=== PATIENT | female | born 1970 | race Caucasian/White ===

== ENCOUNTER 2016-09-22 00:49 | Emergency (ER) | payer BC ==
[2016-09-22] MEDS ORDERED: ACETAMINOPHEN 325 MG TAB PO ONE (01:01)
[2016-09-22] MEDS ORDERED: ALPRAZolam 0.25 MG TAB PO ONE (01:04)
[2016-09-22 01:36] VITALS: TEMP 97.8
--- NOTE | 2016-09-22 02:39 | ED.PDOC ---
History of Present Illness - General Chief Complaint: Allergic Reaction Stated Complaint: i think i am having an allergic reaction Time Seen by Provider: 09/22/16 00:51 Source: patient, family Exam Limitations: no limitations - History of Present Illness Initial Comments: the patient is a 46-year-old female presenting to the emergency room secondary to acute onset atypical symptoms including feeling like her jaw was locking down. She was also feeling palpitations. She was also having tremors. She was quite anxious. no chest pain. No syncope or near-syncope. No vision taste or smell changes. No headache. No rash. No pruritus. She felt like her tongue was getting big and her mouth. On physical exam the only findings is that she is in a mild sinus tachycardia and she has significant shakes and tremors almost consistent with chills. She is afebrile. She is alert and oriented. She is cooperative. No sore throat or runny nose. Tongue is not swollen. There are no rashes. She is not actually having a difficult time breathing. No new medications have been started. She did take an Ambien approximately 1 hour prior to the start of symptoms. Timing/Duration: 1/2 hour Severity: moderate Improving Factors: nothing Worsening Factors: nothing Associated Symptoms: fever/chills Allergies/Adverse Reactions: Allergies NO KNOWN ALLERGY Allergy (Verified 09/22/16 01:24) Home Medications: Ambulatory Orders Bupropion HCl [Wellbutrin Sr] 150 mg PO BID 01/20/14 Esterified Estrogens [Menest] 0.3 mg PO DAILY 01/20/14 Lisinopril & Hydrochlorothiazi [Lisinopril/Hctz 20-12.5 mg] 20 mg PO DAILY 01/20 Metformin HCl 500 mg PO DAILY 01/20/14 Omeprazole 20 mg PO DAILY 01/20/14 Review of Systems - Review of Systems Constitutional: States: chills EENTM: States: mouth swelling - subjectively but not visually seen Respiratory: States: no symptoms reported Cardiology: States: palpitations Gastrointestinal/Abdominal: States: no symptoms reported Genitourinary: States: no symptoms reported Musculoskeletal: States: no symptoms reported Skin: States: no symptoms reported Neurological: States: anxiety, tremors All other Systems: No Change from Baseline Past Medical History (General) - Patient Medical History Hx Dementia: Yes Hx Congestive Heart Failure: No Hx Hypertension: Yes Hx Diabetes: Yes - Vaccination History Hx Tetanus, Diphtheria Vaccination: No Hx Influenza Vaccination: Yes Hx Pneumococcal Vaccination: No Immunizations Up to Date: No - Social History Hx Tobacco Use: No Hx Alcohol Use: No Hx Substance Use: No Hx Substance Use Treatment: No Hx Depression: No - Female History Patient is a Female of Child Bearing Age (10 -59 yrs old): No Patient : No Family Medical History - Family History Mother Family History: Unknown Living Status: Physical Exam - Physical Exam General Appearance: Alert, Anxious, Restless Eye Exam: bilateral normal Ears, Nose, Throat: hearing grossly normal, normal ENT inspection, normal pharynx Neck: full range of motion, supple Respiratory: chest non-tender, lungs clear, normal breath sounds, no respiratory distress, no accessory muscle use Cardiovascular/Chest: normal peripheral pulses, regular rate, rhythm, no edema, tachycardia - sinus tachycardia Peripheral Pulses: radial,right: 2+, radial,left: 2+ Gastrointestinal/Abdominal: non tender, soft Rectal Exam: deferred Back Exam: normal inspection Extremity: normal range of motion, non-tender Neurologic: alert, normal mood/affect - she does have significant anxiety., oriented x 3 Skin Exam: normal color Comments: Vital Signs - 24 hr 09/22/16 01:25 Temperature 97.8 F Pulse Rate [ 115 H Left] Respiratory 20 Rate Blood Pressure 158/94 [Left Arm] O2 Sat by Pulse 95 Oximetry Progress - Progress Progress: 09/22/16 02:41 the patient is a 46-year-old female presenting with palpitations and tremors versus chills along with atypical oral sensations. no angioedema is present. She does not appear to be having allergic reaction. She may be having chills as a first symptom of an oncoming infection that we have not yet been able to detect. She needs to monitor for any new symptoms over the coming 2 -3 days. She needs to keep herself well-hydrated. She responded well to a dose of Tylenol and a low dose of Xanax. It is possible this may be an adverse effect of one of her home medications, most likely her Ambien or Wellbutrin. They both have tremors and palpitations listed as side effects. She needs to follow up with her primary care doctor early this coming week. She needs to return here to the emergency room for any acute worsening. - Results/Orders Results/Orders: Laboratory Tests 09/22/16 09/22/16 01:10 02:01 WBC 9.1 RBC 4.55 Hgb 12.0 Hct 37.2 MCV 81.8 MCH 26.4 L MCHC 32.3 L RDW 13.7 Plt Count 271 MPV 10.2 Absolute Neuts (auto) 4.50 Absolute Lymphs (auto) 3.70 H Absolute Monos (auto) 0.70 Absolute Eos (auto) 0.20 Absolute Basos (auto) 0.10 Neutrophils % 49.7 Lymphocytes % 40.5 Monocytes % 7.2 Eosinophils % 1.7 Basophils % 0.9 D-Dimer, Quantitative < 230 Sodium 137 Potassium 3.6 Chloride 104 Carbon Dioxide 24 Anion Gap 12.6 BUN 16 Creatinine 1.11 BUN/Creatinine Ratio 14.4 Random Glucose 127 H Serum Osmolality 276.6 Calcium 9.5 Magnesium 2.0 Total Bilirubin 0.2 AST 25 ALT 22 Alkaline Phosphatase 85 Creatine Kinase 102 CK-MB (CK-2) 1.2 CK-MB (CK-2) % Not Reportable Troponin I < 0.02 Serum Total Protein 7.0 Albumin 4.2 Globulin 2.8 Albumin/Globulin Ratio 1.5 TSH 5.11 Urine Color Yellow Urine Appearance Clear Urine pH 6.0 Ur Specific [place] 1.010 Urine Protein Negative Urine Glucose (UA) Negative Urine Ketones Negative Urine Blood Trace-lysed H Urine Nitrite Negative Urine Bilirubin Negative Urine Urobilinogen 0.2 Ur Leukocyte Esterase Trace H Urine RBC 0-1 Urine WBC 1-3 Ur Epithelial Cells 0 Urine Bacteria Rare Urine HCG, Qual Negative EKG shows normal sinus rhythm. Mild right axis deviation. Low voltage in the anterior lateral leads. No ST segment changes concerning for ischemia otherwise. Mild T-wave inversion in lead 3 only. Departure - Departure Clinical Impression: Occasional tremors, Palpitations Disposition: Discharge to Home or Self Care Condition: Fair Departure Forms: ED Discharge - Pt. Copy, Patient Portal Self Enrollment Diet: regular diet Activity: increase activity as tolerated Referrals: Jean-Claude Sanford MD [Primary Care Provider] - 1-5 Days Home Medications: Ambulatory Orders Bupropion HCl [Wellbutrin Sr] 150 mg PO BID 01/20/14 Esterified Estrogens [Menest] 0.3 mg PO DAILY 01/20/14 Lisinopril & Hydrochlorothiazi [Lisinopril/Hctz 20-12.5 mg] 20 mg PO DAILY 01/20 Metformin HCl 500 mg PO DAILY 01/20/14 Omeprazole 20 mg PO DAILY 01/20/14 Additional Instructions: the patient is a 46-year-old female presenting with palpitations and tremors versus chills along with atypical oral sensations. no angioedema is present. She does not appear to be having allergic reaction. She may be having chills as a first symptom of an oncoming infection that we have not yet been able to detect. She needs to monitor for any new symptoms over the coming 2 -3 days. She needs to keep herself well-hydrated. She responded well to a dose of Tylenol and a low dose of Xanax. It is possible this may be an adverse effect of one of her home medications, most likely her Ambien or Wellbutrin. They both have tremors and palpitations listed as side effects. She needs to follow up with her primary care doctor early this coming week. She needs to return here to the emergency room for any acute worsening.
[2016-09-22 02:58] VITALS: BP 131/41; O2SAT 100
== END 2016-09-22 02:59 | disposition home or self-care (01) ==
LOC: ER 00:49
DX: R00.2 Palpitations (principal); R25.1 Tremor, unspecified; E11.9 Type 2 diabetes mellitus without complications; I10 Essential (primary) hypertension; F03.90 Unspecified dementia, unspecified severity, without behavioral disturbance, psychotic disturbance, mood disturbance, and anxiety; Z79.899 Other long term (current) drug therapy

== ENCOUNTER → 2016-10-02 | Outpatient (CLI) | payer BC | LOC: LAB 16:37 | PROVIDERS: ATTEND Obstetrics & Gynecology | DX: G58.9 Mononeuropathy, unspecified (principal); I42.9 Cardiomyopathy, unspecified; D50.9 Iron deficiency anemia, unspecified; E05.90 Thyrotoxicosis, unspecified without thyrotoxic crisis or storm ==

== ENCOUNTER 2017-01-06 05:31 | Emergency (ER) | payer BC ==
[2017-01-06] MEDS ORDERED: KETOROLAC TROMETHAMINE INJ 30 MG/ML VIAL IM ONE (06:15)
--- NOTE | 2017-01-06 06:34 | ED.PDOC ---
History of Present Illness - General Information Source: patient Exam Limitations: no limitations - History of Present Illness Initial Comments: The patient is a 46-year-old female presenting to the emergency room secondary to right lower quadrant discomfort present for the last 48 hours. No real nausea or vomiting. No back pain. No urinary symptoms. No constipation or diarrhea. The patient reports having had her gallbladder taken out giving her some mild intermittent chronic diarrhea. She also reports having had a hysterectomy in the past. No new medication changes. No sore throat or runny nose. No chest pain or shortness of breath. Abdominal Pain Onset Location: RLQ Pain Radiation: no radiation Quality: moderate, cramping, dull, stabbing Timing/Duration: days Improving Factors: nothing Worsening Factors: other <Preston Schmitt - Last Filed: 01/06/17 06:31> <Susanna Kim - Last Filed: 01/06/17 08:27> - General Chief Complaint: Abdominal Pain Stated Complaint: abd pain Time Seen by Provider: 01/06/17 05:57 Review of Systems - Review of Systems Constitutional: States: malaise EENTM: States: no symptoms reported Respiratory: States: no symptoms reported Cardiology: States: no symptoms reported Gastrointestinal/Abdominal: States: abdominal pain Genitourinary: States: no symptoms reported Musculoskeletal: States: no symptoms reported Skin: States: no symptoms reported Neurological: States: no symptoms reported Endocrine: States: no symptoms reported All other Systems: No Change from Baseline <Preston Schmitt - Last Filed: 01/06/17 06:31> Past Medical History (General) - Patient Medical History Hx Seizures: No Hx Stroke: No Hx Dementia: No Hx Asthma: No Hx of COPD: No Hx Cardiac Disorders: No Hx Congestive Heart Failure: No Hx Pacemaker: No Hx Hypertension: No Hx Thyroid Disease: No Hx Diabetes: Yes Hx Gastroesophageal Reflux: No Hx Renal Disease: No Hx Cancer: No Hx of HIV: No Hx Hepatitis C: No Hx MRSA: No Surgical History: cholecystectomy, Hysterectomy - Vaccination History Hx Tetanus, Diphtheria Vaccination: No Hx Influenza Vaccination: No Hx Pneumococcal Vaccination: No Immunizations Up to Date: No - Social History Hx Tobacco Use: No Hx Chewing Tobacco Use: No Hx Alcohol Use: No Hx Substance Use: No Hx Substance Use Treatment: No Hx Depression: Yes Feels Threatened In Home Enviroment: No Feels Threatened In a Relationship: No Hx Physical Abuse: No Hx Emotional Abuse: No Hx Suspected Abuse: No - Activities of Daily Living Hospice Agency (if applicable):: None - Female History Patient is a Female of Child Bearing Age (10 -59 yrs old): Yes - hysterectomy Patient : No - Triage Comment ED Triage Comment: pt tearful, states pain continues to get worse each day <Preston Schmitt - Last Filed: 01/06/17 06:31> Family Medical History - Family History Mother Family History: Unknown Living Status: <Preston Schmitt - Last Filed: 01/06/17 06:31> Physical Exam - Physical Exam General Appearance: Alert, Comfortable, No apparent distress Eyes, Ears, Nose, Throat Exam: PERRL/EOMI, normal ENT inspection Neck: non-tender, full range of motion, supple Respiratory: chest non-tender, lungs clear, normal breath sounds, no respiratory distress, no accessory muscle use Cardiovascular/Chest: normal peripheral pulses, regular rate, rhythm, no edema Peripheral Pulses: 2+ Gastrointestinal/Abdominal: normal bowel sounds, soft, other - the patient does have some mild guarding to the right lower quadrant. No definite masses are palpable. Rectal Exam: deferred Back Exam: normal inspection, no CVA tenderness, no vertebral tenderness Extremity: normal range of motion, non-tender, normal inspection, no pedal edema , normal capillary refill Neurologic: booth manager II-XII nml as tested, alert, normal mood/affect, oriented x 3 Skin Exam: normal color Comments: Laboratory Tests 01/06/17 06:20 WBC 9.2 RBC 4.33 Hgb 11.1 L Hct 34.3 L MCV 79.1 L MCH 25.6 L MCHC 32.5 L RDW 14.1 Plt Count 286 MPV 9.6 Absolute Neuts (auto) 6.80 Absolute Lymphs (auto) 1.70 Absolute Monos (auto) 0.60 Absolute Eos (auto) 0.00 Absolute Basos (auto) 0.10 Neutrophils % 74.1 Lymphocytes % 18.1 L Monocytes % 6.7 Eosinophils % 0.4 L Basophils % 0.7 Vital Signs - 24 hr 01/06/17 01/06/17 05:53 06:02 Temperature 97.8 F Pulse Rate 78 Pulse Rate [ 78 monitor] Respiratory 18 Rate Blood Pressure 139/76 [Left Arm] O2 Sat by Pulse 96 Oximetry <Preston Schmitt - Last Filed: 01/06/17 06:31> Progress - Progress Progress: 01/06/17 07:36 Patient is feeling better after the Toradol and X-ray shows possible kidney stone so will get CT scan to further evaluate. Patient agreeable with plan. 01/06/17 08:[address] results with patient. No obvious cause for patients pain. Will treat conservatively. - EKG/XRAY/CT XRAY: abdomen - hiatal hernia, 2mm calcific density RLQ- ? kidney stone, non- obstructive bowel gas pattern CT Ordered: Yes - Nonobstructing stone in loweer pole of R kidney o/w no acute findings <Susanna Kim - Last Filed: 01/06/17 08:27> Departure <Preston Schmitt - Last Filed: 01/06/17 06:31> - Departure Time of Disposition: 08:26 Diet: resume usual diet Activity: increase activity as tolerated <Susanna Kim - Last Filed: 01/06/17 08:27> - Departure Clinical Impression: Abdominal pain Qualifiers: Abdominal location: right lower quadrant Qualified Code(s): R10.31 - Right lower quadrant pain Disposition: Discharge to Home or Self Care Condition: Good Departure Forms: ED Discharge - Pt. Copy, Patient Portal Self Enrollment Instructions: DI for Abdominal Pain-Adult Referrals: Jean-Claude Sanford MD [Primary Care Provider] - 1-5 Days Home Medications: Ambulatory Orders Bupropion HCl [Wellbutrin Sr] 150 mg PO BID 01/20/14 Esterified Estrogens [Menest] 0.3 mg PO DAILY 01/20/14 Lisinopril & Hydrochlorothiazi [Lisinopril/Hctz 20-12.5 mg] 20 mg PO DAILY 01/20 Metformin HCl 500 mg PO DAILY 01/20/14 Omeprazole 20 mg PO DAILY 01/20/14
--- NOTE | 2017-01-06 06:47 | RAD ---
Procedure: XR ABDOMEN 2 VIEWS SUPINE ERECT Exam Date: 01/06/2017 Ordering Provider: Preston Schmitt Clinical Indication: rlq pain Comparison: None Findings: Upright chest x-ray: Cardiac size is normal. Pulmonary vasculature is normal. Mediastinal and aortic contour normal. There is no consolidation or effusion. Moderate sized hiatal hernia. Flat and upright abdomen: Surgical clips in the right upper quadrant. Clip projecting over the left side of the pelvis. Linear opacities in the right lower quadrant may represent sutures, correlate with patient's prior surgical history. There is no small or large bowel distention. There is no pneumoperitoneum. 2 mm calcific density in the right side of the pelvis may represent a phlebolith or possibly a ureteral stone. There is no acute skeletal abnormality. Impression: 1. Moderate-sized hiatal hernia. 2. Linear opacities in the right lower quadrant may represent sutures, correlate with patient's prior surgical history. 3. Nonobstructive bowel gas pattern. 4. 2 mm calcific density in the right side of the pelvis may represent a phlebolith or possibly a ureteral stone. Electronically signed by: Jadiel An MD 01/06/2017 6:46 AM CDT
[2017-01-06 06:48] VITALS: BP 132/81; TEMP 98.1; O2SAT 95
--- NOTE | 2017-01-06 08:08 | CT ---
EXAM DESCRIPTION: Abdoment/Pelvis w/o Contrast CLINICAL HISTORY: RLQ pain, ? kidney stone of X-ray COMPARISON: Abdominal series January 06, 2017. Ultrasound gallbladder January 19, 2014 TECHNIQUE: Noncontrast transaxial CT images of the abdomen and pelvis are obtained. This exam was performed according to our departmental dose-optimization program, which includes automated exposure control, adjustment of the mA and/or kV according to patient size and/or use of iterative reconstruction technique . FINDINGS: The visualized lung bases show no acute findings. There is a moderate retrocardiac hiatal hernia. Given the limitations of a noncontrast exam there is mild heterogeneous decreased attenuation of the liver compared to the spleen suggesting fatty infiltration. The liver is enlarged measuring 16.9 cm. Cholecystectomy changes are seen without biliary tract obstruction. Spleen, pancreas, and adrenal glands are unremarkable. Abdominal vasculature is unremarkable. There is a nonobstructing 6 x 7 mm calcification in a lower pole calyx of the right kidney. No ureteral calcification or obstruction is seen. Urinary bladder is somewhat contracted and unremarkable. There are surgical absence of uterus. The ovaries are not identified. The appendix is small and within normal limits. No small bowel obstruction. Visualized colon is unremarkable. No significant diverticular disease is appreciated. No abnormal lymphadenopathy. Small fat-containing umbilical hernia. Osseous structures show no aggressive bony lesions. IMPRESSION: Nonobstructing right nephrolithiasis. There is a 6 x 7 mm calcification in the lower pole calyx. Mild hepatomegaly with evidence of diffuse fatty infiltration of the liver. No acute findings on noncontrast CT of the abdomen and pelvis. Retrocardiac hiatal hernia is noted. Electronically signed by: Yovanny Sheikh MD 01/06/2017 8:07 AM CDT
== END 2017-01-06 08:42 | disposition home or self-care (01) ==
LOC: ER 05:31
DX: R10.31 Right lower quadrant pain (principal); E11.9 Type 2 diabetes mellitus without complications; F32.9 Major depressive disorder, single episode, unspecified
CPT/HCPCS: 36415; 74020; 74176; 80053; 81001; 82150; 83690; 85025; 85610; 85730; J1885

== ENCOUNTER → 2017-01-13 | Outpatient (CLI) | payer BC ==
--- NOTE | 2017-01-14 08:53 | RAD ---
EXAM DESCRIPTION: IVP Intravenous Pyelogram CLINICAL HISTORY: 46 years Female, CALCULUS OF KIDNEY COMPARISON: January 06, 2017 FINDINGS: T Rail Turner radiographs demonstrates a central right side renal calculus measuring about 5 to 6 mm in size consistent with the calculus noted on a recent CT scan. Serial abdominal radiographs are obtained following IV administration of 100 mL of Isovue 300 and show prompt symmetric nephrograms and pyelograms with excretion noted symmetrically with no dilatation of either collecting system or ureter. Urinary bladder is unremarkable. Normal tiny post void residual observed in the urinary bladder. IMPRESSION: 1. Nonobstructing right nephrolithiasis 2. Normal renal function with no obstruction observed. Electronically signed by: Baldomero Matos MD 01/14/2017 8:53 AM CDT
== END | disposition home or self-care (01) ==
LOC: RAD 09:03
PROVIDERS: ATTEND Obstetrics & Gynecology
DX: N20.0 Calculus of kidney (principal)

== ENCOUNTER → 2017-01-15 | Outpatient (CLI) | payer BC ==
--- NOTE | 2017-01-16 10:30 | MAM ---
History: Well woman exam. Date of exam: 01/15/2017 Services provided: Bilateral full field digital screening mammography. CAD, the images were reviewed with R2 computer aided detection. FINDINGS: Glandular tissue is scattered glandular pattern. Comparison with 2013 exam. No dominant mass, architectural distortion or clustered microcalcification. IMPRESSION: Benign exam Recommendation: Routine annual mammography BIRAD CATEGORY: 2 BENIGN Electronically signed by: Aliya Alexis MD 01/16/2017 10:30 AM CDT
== END | disposition home or self-care (01) ==
LOC: MAMMO 11:31
PROVIDERS: ATTEND Obstetrics & Gynecology
DX: Z12.31 Encounter for screening mammogram for malignant neoplasm of breast (principal)

== ENCOUNTER → 2018-02-11 | Outpatient (CLI) | payer BC ==
--- NOTE | 2018-02-13 10:27 | MAM ---
EXAM DESCRIPTION: 3D Screening BILATERAL : Digital Mammography. CLINICAL HISTORY: 47 years Female SCREENING . No complaints. Remote family history of breast cancer. Childbirth. Postmenopausal. Currently on HRT. COMPARISON: 2-D digital screening bilateral study, 01/15/2017. Report from prior examination also reviewed. TECHNIQUE: Bilateral CC and MLO projection full-field images, 3-D tomosynthesis digital mammographic technique. CAD not utilized. FINDINGS: The breast parenchymal density pattern is: Almost entirely fatty. No skin thickening or nipple retraction. Bilateral solitary microcalcifications. No focal, stellate mass or density, focal asymmetry , and no suspicious microcalcifications bilaterally. Stable mammograms compared to prior study, taking into account differences in mammographic technique IMPRESSION: BI-RADS CATEGORY: 2 - BENIGN FINDINGS. FOLLOW UP: Routine digital bilateral screening, one year interval from February 2018. Written communication explaining the IMPRESSION and follow-up, will be mailed to the patient and referring health care provider. According to the [employer], yearly mammograms are recommended starting at age 40 and continuing as long as a woman is in good health. Any breast change noted on a breast self-exam should be reported promptly to the patient's healthcare provider. Breast MRI is recommended for women with an approximately 20-25% or greater lifetime risk of breast cancer, including women with a strong family history of breast or ovarian cancer and women who have been treated for Hodgkin's disease. A negative mammographic report should not delay tissue diagnosis in patients with significant clinical history or physical findings. Extremely dense breast tissue limits the sensitivity of digital mammography. Electronically signed by: Hung Meade MD 02/13/2018 10:26 AM CDT
== END ==
LOC: MAMMO 11:30
PROVIDERS: ATTEND Obstetrics & Gynecology
DX: Z12.31 Encounter for screening mammogram for malignant neoplasm of breast (principal)

== ENCOUNTER 2018-06-13 00:49 | Emergency (ER) | payer BC ==
[2018-06-13] MEDS ORDERED: LACTATED RINGERS 1,000 ML IVS ONE (01:10)
[2018-06-13] MEDS ORDERED: KETOROLAC TROMETHAMINE INJ 30 MG/ML VIAL IV ONE (01:10)
[2018-06-13] MEDS ORDERED: TAMSULOSIN 0.4 MG CAP PO ONE (01:10)
[2018-06-13] MEDS ORDERED: MORPHINE SULFATE INJ 10 MG/ML VIAL IV ONE (01:11)
[2018-06-13 01:28] VITALS: TEMP 97.3
--- NOTE | 2018-06-13 01:34 | ED.PDOC ---
History of Present Illness - General Chief Complaint: Problem Stated Complaint: Right abd / flank pain Time Seen by Provider: 06/13/18 01:08 Source: patient Exam Limitations: no limitations - History of Present Illness Initial Comments: Patience Weber 47 y/o female came to ER with intermittent right flank pain for the last 2 weeks and had seen Urologist Dr. Rios 10 days ago and had KUB done and was told had right ureteral stone about to go down her bladder. Timing/Duration: week - 2 Quality: intermittent, sharpness Radiation: right flank Activites at Onset: none Prior abdominal problems: similar symptoms Sexual intercourse history: single partner Improving Factors: nothing Worsening Factors: nothing Associated Symptoms: denies symptoms Allergies/Adverse Reactions: Allergies NO KNOWN ALLERGY Allergy (Verified 09/22/16 01:24) Home Medications: Ambulatory Orders Bupropion HCl [Wellbutrin Sr] 150 mg PO BID 01/20/14 Esterified Estrogens [Menest] 0.3 mg PO DAILY 01/20/14 Lisinopril & Hydrochlorothiazi [Lisinopril/Hctz 20-12.5 mg] 20 mg PO DAILY 01/20 Metformin HCl 500 mg PO DAILY 01/20/14 Omeprazole 20 mg PO DAILY 01/20/14 Acetamin W/Cod #3 Tab [Tylenol w/CODEINE #3] 1 ea PO Q4HR #20 tab 06/13/18 Review of Systems - Review of Systems Constitutional: States: no symptoms reported EENTM: States: no symptoms reported Respiratory: States: no symptoms reported Cardiology: States: no symptoms reported Gastrointestinal/Abdominal: States: no symptoms reported Genitourinary: States: see HPI Musculoskeletal: States: no symptoms reported Skin: States: no symptoms reported Past Medical History (General) - Patient Medical History Hx Seizures: No Hx Stroke: No Hx Dementia: No Hx Asthma: No Hx of COPD: No Hx Cardiac Disorders: No Hx Congestive Heart Failure: No Hx Pacemaker: No Hx Hypertension: No Hx Thyroid Disease: No Hx Diabetes: Yes Hx Gastroesophageal Reflux: No Hx Renal Disease: No Hx Cancer: No Hx of HIV: No Hx Hepatitis C: No Hx MRSA: No - Vaccination History Hx Tetanus, Diphtheria Vaccination: No Hx Influenza Vaccination: No Hx Pneumococcal Vaccination: No - Social History Hx Tobacco Use: No Hx Chewing Tobacco Use: No Hx Alcohol Use: No Hx Substance Use: No Hx Substance Use Treatment: No Hx Depression: Yes Hx Physical Abuse: No Hx Emotional Abuse: No Hx Suspected Abuse: No - Female History Patient : No Family Medical History - Family History Mother Family History: Unknown Living Status: Physical Exam - Physical Exam General Appearance: Alert, Anxious, No apparent distress Eyes, Ears, Nose, Throat Exam: normal ENT inspection Neck: non-tender, full range of motion, supple, normal inspection Cardiovascular/Respiratory: regular rate, rhythm, no M/R/G, normal peripheral pulses Gastrointestinal/Abdominal: normal bowel sounds, non tender, soft Back Exam: no vertebral tenderness, CVA tenderness (R) Extremity: normal range of motion, no pedal edema, no calf tenderness Neurologic: alert, oriented x 3 Skin Exam: normal color, warm/dry Progress - Progress Progress: 06/13/18 02:12 Vital Signs - 8 hr 06/13/18 01:00 Temperature 97.3 F L Pulse Rate [ 85 monitor] Respiratory 20 Rate Blood Pressure 157/92 [Left Arm] O2 Sat by Pulse 100 Oximetry - Results/Orders Results/Orders: 06/13/18 01:10 IV Care:Saline Lock per Protoc QSHIFT URINALYSIS Stat Laboratory Results - last 24 hr 06/13/18 06/13/18 01:10 01:10 WBC 11.7 H RBC 4.37 Hgb 12.8 Hct 38.4 MCV 88.0 MCH 29.4 MCHC 33.4 RDW 12.8 Plt Count 360 MPV 9.6 Absolute Neuts (auto) 8.40 H Absolute Lymphs (auto) 2.20 Absolute Monos (auto) 0.70 Absolute Eos (auto) 0.30 Absolute Basos (auto) 0.10 Neutrophils % 72.1 Lymphocytes % 18.9 L Monocytes % 6.2 Eosinophils % 2.2 Basophils % 0.6 Sodium 138 Potassium 4.2 Chloride 106 Carbon Dioxide 26 Anion Gap 10.2 L BUN 22 H Creatinine 1.22 BUN/Creatinine Ratio 18.0 Random Glucose 98 Serum Osmolality 279.0 Calcium 9.5 Total Bilirubin 0.4 AST 24 ALT 27 Alkaline Phosphatase 75 Serum Total Protein 7.0 Albumin 3.9 Globulin 3.1 Albumin/Globulin Ratio 1.3 - EKG/XRAY/CT CT Ordered: Yes - abd/p 6.4 mm distal ureteral stone Departure - Departure Clinical Impression: Right ureteral calculus Time of Disposition: 02:36 Disposition: Discharge to Home or Self Care Condition: Fair Departure Forms: ED Discharge - Pt. Copy, Patient Portal Self Enrollment Referrals: Jean-Claude Sanford MD [Primary Care Provider] - 1-2 Weeks Prescriptions: Acetamin W/Cod #3 Tab [Tylenol w/CODEINE #3] 1 ea PO Q4HR #20 tab Home Medications: Ambulatory Orders Bupropion HCl [Wellbutrin Sr] 150 mg PO BID 01/20/14 Esterified Estrogens [Menest] 0.3 mg PO DAILY 01/20/14 Lisinopril & Hydrochlorothiazi [Lisinopril/Hctz 20-12.5 mg] 20 mg PO DAILY 01/20 Metformin HCl 500 mg PO DAILY 01/20/14 Omeprazole 20 mg PO DAILY 01/20/14 Acetamin W/Cod #3 Tab [Tylenol w/CODEINE #3] 1 ea PO Q4HR #20 tab 06/13/18 Additional Instructions: Call up Dr. Rios's office in am;return to ER as needed
--- NOTE | 2018-06-13 02:17 | CT ---
EXAM DESCRIPTION: Abdoment/Pelvis w/o Contrast CLINICAL HISTORY: 47 years Female, pain COMPARISON: 01/06/2017 TECHNIQUE: Contiguous axial CT images of the abdomen and pelvis were acquired without administration of intravenous contrast. Coronal and sagittal reformatted images are provided. This exam was performed according to our departmental dose-optimization program which includes use of Automated Exposure Control, adjustment of the mA and/or kV according to patient size and/or use of iterative reconstruction technique. FINDINGS: Chest base: Moderate hiatal hernia. Liver: Unremarkable. Gallbladder: Surgically absent mild extrahepatic biliary duct dilatation. Spleen: Unremarkable. Adrenals: Unremarkable. Pancreas: Unremarkable. Right Kidney: A 6 x 4 mm obstructing stone is seen within the distal right ureter image 74 series 2 resulting in moderate right hydronephrosis and hydroureter. Left Kidney: No renal stones or hydronephrosis. Aorta and branch vessels: Unremarkable. Lymph nodes: No lymphadenopathy. Bowels: No obstruction. Colon: No wall thickening. Appendix: Normal. Peritoneum: No free air or free fluid. Reproductive organs: Unremarkable. Bladder: Unremarkable. Bones and soft tissues: No acute osseous or soft tissue abnormalities. IMPRESSION: 6 mm obstructing stone within the distal right ureter resulting in moderate hydronephrosis and hydroureter. Moderate hiatal hernia. Electronically signed by: Jalen Masterson MD 06/13/2018 2:15 AM CDT
[2018-06-13] MEDS ORDERED: HYDROCOD/APAP 10/325 (ER DISP) # 3 tablets PO ONE (02:37)
[2018-06-13] MEDS: MORPHINE SULFATE INJ 10 MG/ML VIAL IV ONE (02:44)
[2018-06-13 03:32] VITALS: BP 138/88; O2SAT 97
== END 2018-06-13 03:22 | disposition home or self-care (01) ==
LOC: ER 00:49
DX: N13.2 Hydronephrosis with renal and ureteral calculous obstruction (principal); K44.9 Diaphragmatic hernia without obstruction or gangrene; F32.9 Major depressive disorder, single episode, unspecified; E11.9 Type 2 diabetes mellitus without complications; Z79.84 Long term (current) use of oral hypoglycemic drugs; Z79.899 Other long term (current) drug therapy
CPT/HCPCS: 36415; 74176; 80053; 85025; J1885; J2270; J7120

== ENCOUNTER → 2019-02-19 | Outpatient (CLI) | payer BC ==
--- NOTE | 2019-03-01 14:26 | MAM ---
EXAM DESCRIPTION: 3D Screening BILATERAL : Digital Mammography. CLINICAL HISTORY: 48 years Female SCREENING MAMMO . No complaints or personal history of breast cancer. No remote family history of breast cancer but remote history of ovarian cancer. Childbirth. Postmenopausal 20+ years. Currently on HRT. Lifetime risk of developing breast cancer (Tyrer-Cuzick model)(%): 6.7. COMPARISON: Bilateral screening digital breast tomosynthesis 02/11/2018. Bilateral screening 2-D digital mammography 01/15/2017.. No prior reports available. TECHNIQUE: Bilateral CC and MLO projection full-field images, digital tomosynthesis mammographic technique. Bilateral digital 2-D full-field MLO images. CAD not available for tomosynthesis or 2-D images. FINDINGS: The breast parenchymal density pattern is: Scattered areas of fibroglandular density. No skin thickening or nipple retraction. Bilateral solitary microcalcifications. No new focal, stellate mass or density, focal asymmetry , and no suspicious microcalcifications bilaterally. Stable mammograms compared to prior study. IMPRESSION: Benign exam. BIRAD CATEGORY: 2 BENIGN FINDINGS. RECOMMENDATIONS: FOLLOW UP: Routine digital bilateral mammographic screening, one year interval from February 2019. Written communication explaining the IMPRESSION and follow-up, will be mailed to the patient and referring health care provider. According to the [employer], yearly mammograms are recommended starting at age 40 and continuing as long as a woman is in good health. Any breast change noted on a breast self-exam should be reported promptly to the patient's healthcare provider. Breast MRI is recommended for women with an approximately 20-25% or greater lifetime risk of breast cancer, including women with a strong family history of breast or ovarian cancer and women who have been treated for Hodgkin's disease. A negative mammographic report should not delay tissue diagnosis in patients with significant clinical history or physical findings. Extremely dense breast tissue limits the sensitivity of digital mammography. Electronically signed by: Hung Meade MD 03/01/2019 2:24 PM CDT
== END ==
LOC: MAMMO 11:50
PROVIDERS: ATTEND Obstetrics & Gynecology
DX: Z12.31 Encounter for screening mammogram for malignant neoplasm of breast (principal)

== ENCOUNTER 2019-03-13 23:58 | Emergency (ER) | payer BC ==
--- NOTE | 2019-03-14 00:17 | ED.PDOC ---
History of Present Illness - General Chief Complaint: Trauma Stated Complaint: left shoulder pain Time Seen by Provider: 03/14/19 00:13 Source: patient Exam Limitations: no limitations - History of Present Illness Initial Comments: Patience Weber 48 y/o female stated had sharp left shoulder pain after falling on the side of the boat landed on her left side.Denies neck.head.chest hip leg,thigh pains. Occurred: just prior to arrival Severity: moderate Pain Location: upper extremity - left shoiulder Method of Injury: fall Improving Factors: rest Worsening Factors: movement Loss of Consciousness: no loss of consciousness Associated Symptoms (Fall): other - PAIN-see hpi Allergies/Adverse Reactions: Allergies NO KNOWN ALLERGY Allergy (Verified 03/14/19 01:02) Home Medications: Ambulatory Orders Bupropion HCl [Wellbutrin Sr] 150 mg PO BID 01/20/14 Esterified Estrogens [Menest] 0.3 mg PO DAILY 01/20/14 Lisinopril & Hydrochlorothiazi [Lisinopril/Hctz 20-12.5 mg] 20 mg PO DAILY 01/20/14 Metformin HCl [Metformin Hydrochloride] 500 mg PO DAILY 01/20/14 Omeprazole 20 mg PO DAILY 01/20/14 Acetamin W/Cod #3 Tab [Tylenol w/CODEINE #3] 1 ea PO Q4HR #20 tab 06/13/18 Acetaminophen W/ Codeine [Tylenol/Codeine #4 300-60 mg] 1 ea PO Q4HR #20 tab 03/14/19 Review of Systems - Review of Systems Musculoskeletal: States: see HPI, joint pain - left shoulder Past Medical History (General) - Patient Medical History Hx Seizures: No Hx Stroke: No Hx Dementia: No Hx Asthma: No Hx of COPD: No Hx Cardiac Disorders: No Hx Congestive Heart Failure: No Hx Pacemaker: No Hx Hypertension: No Hx Thyroid Disease: No Hx Diabetes: Yes Hx Gastroesophageal Reflux: No Hx Renal Disease: No Hx Cancer: No Hx of HIV: No Hx Hepatitis C: No Hx MRSA: No Surgical History: appendectomy, cholecystectomy, other - hystyrectomy - Vaccination History Hx Tetanus, Diphtheria Vaccination: No Hx Influenza Vaccination: No Hx Pneumococcal Vaccination: No - Social History Hx Tobacco Use: No Hx Chewing Tobacco Use: No Hx Alcohol Use: No Hx Substance Use: No Hx Substance Use Treatment: No Hx Depression: Yes Hx Physical Abuse: No Hx Emotional Abuse: No Hx Suspected Abuse: No - Female History Patient : No Family Medical History - Family History Mother Family History: Unknown Living Status: Physical Exam - Physical Exam General Appearance: Alert, Comfortable, No apparent distress Head Injury: no evidence of injury Eye Exam: bilateral normal ENT Exam: hearing grossly normal, no evidence of ENT injury Neck Exam: non-tender, full range of motion, normal alignment, normal inspection Cardiovascular/Respiratory: regular rate, rhythm, no M/R/G, normal peripheral pulses, normal breath sounds Gastrointestinal/Abdominal: non tender, soft Back Exam: no CVA tenderness, no vertebral tenderness Extremity Exam: bony-point tenderness - left shoulder, pain with movement - left shoulder Neurologic: alert, oriented x 3 Skin Exam: normal color - Amos Coma Score Best Eye Response (Amos): (4) open spontaneously Best Verbal Response ([place]): (5) oriented Best Motor Response (Amos): (6) obeys commands Amos Total: 15 Progress - Progress Progress: 03/14/19 01:39 Vital Signs - 8 hr 03/14/19 03/14/19 00:00 01:14 Temperature 98.4 F Pulse Rate [ 100 H 90 monitor] Respiratory 20 20 Rate Blood Pressure 148/99 154/94 [Right Arm] O2 Sat by Pulse 100 97 Oximetry - EKG/XRAY/CT XRAY: left humerus-fracture neck humerus left Departure - Departure Clinical Impression: Fracture of left humerus Qualifiers: Encounter type: initial encounter Humerus Location: surgical neck Fracture type: closed Fracture morphology: unspecified fracture morphology Fracture alignment: nondisplaced Qualified Code(s): S42.215A - Unspecified nondisplaced fracture of surgical neck of left humerus, initial encounter for closed fracture Time of Disposition: 01:42 Disposition: Discharge to Home or Self Care Departure Forms: ED Discharge - Pt. Copy, Patient Portal Self Enrollment Instructions: Shoulder Fracture (DC), Upper Arm Fracture, Shoulder Fracture Referrals: Jean-Claude Sanford MD [Primary Care Provider] - 1-2 Weeks Prescriptions: Acetaminophen W/ Codeine [Tylenol/Codeine #4 300-60 mg] 1 ea PO Q4HR #20 tab Home Medications: Ambulatory Orders Bupropion HCl [Wellbutrin Sr] 150 mg PO BID 01/20/14 Esterified Estrogens [Menest] 0.3 mg PO DAILY 01/20/14 Lisinopril & Hydrochlorothiazi [Lisinopril/Hctz 20-12.5 mg] 20 mg PO DAILY 01/20/14 Metformin HCl [Metformin Hydrochloride] 500 mg PO DAILY 01/20/14 Omeprazole 20 mg PO DAILY 01/20/14 Acetamin W/Cod #3 Tab [Tylenol w/CODEINE #3] 1 ea PO Q4HR #20 tab 06/13/18 Acetaminophen W/ Codeine [Tylenol/Codeine #4 300-60 mg] 1 ea PO Q4HR #20 tab 0 03/14/19 Additional Instructions: Follow up with ORTHOPEDIST of choice 15 March 2019;Return to ER as needed
[2019-03-14] MEDS ORDERED: fentaNYL CITRATE INJ 50 MCG/ML AMP IV ONE (00:31)
[2019-03-14] MEDS ORDERED: ORPHENADRINE CITRATE 30 MG/ML AMP IV ONE (00:32)
--- NOTE | 2019-03-14 01:27 | RAD ---
EXAM DESCRIPTION: Clavicle,Left (accession [id number]), Humerus,Left (accession [id number]), Shoulder,Left 2 or More Views (accession [id number]) CLINICAL HISTORY: 48 years Female, fall/pain COMPARISON: None. FINDINGS: There is an acute, mildly comminuted fracture of the left humeral neck without significant displacement. No dislocation. No evidence for an acute fracture of the left clavicle. Visualized lungs are clear. Surrounding soft tissues are unremarkable. IMPRESSION: 1. Acute fracture of the left humeral neck. 2. No evidence for an acute fracture of the left clavicle. Electronically signed by: Ivan Gonzalez MD 03/14/2019 1:25 AM CDT
--- NOTE | 2019-03-14 01:27 | RAD ---
EXAM DESCRIPTION: Clavicle,Left (accession [id number]), Humerus,Left (accession [id number]), Shoulder,Left 2 or More Views (accession [id number]) CLINICAL HISTORY: 48 years Female, fall/pain COMPARISON: None. FINDINGS: There is an acute, mildly comminuted fracture of the left humeral neck without significant displacement. No dislocation. No evidence for an acute fracture of the left clavicle. Visualized lungs are clear. Surrounding soft tissues are unremarkable. IMPRESSION: 1. Acute fracture of the left humeral neck. 2. No evidence for an acute fracture of the left clavicle. Electronically signed by: Ivan Gonzalez MD 03/14/2019 1:25 AM CDT
--- NOTE | 2019-03-14 01:27 | RAD ---
EXAM DESCRIPTION: Clavicle,Left (accession [id number]), Humerus,Left (accession [id number]), Shoulder,Left 2 or More Views (accession [id number]) CLINICAL HISTORY: 48 years Female, fall/pain COMPARISON: None. FINDINGS: There is an acute, mildly comminuted fracture of the left humeral neck without significant displacement. No dislocation. No evidence for an acute fracture of the left clavicle. Visualized lungs are clear. Surrounding soft tissues are unremarkable. IMPRESSION: 1. Acute fracture of the left humeral neck. 2. No evidence for an acute fracture of the left clavicle. Electronically signed by: Ivan Gonzalez MD 03/14/2019 1:25 AM CDT
[2019-03-14] MEDS ORDERED: HYDROCOD/APAP 10/325 (ER DISP) # 3 tablets PO ONE (01:44)
[2019-03-14] MEDS ORDERED: HYDROCOD/APAP 7.5/325 (ER DISP) #3 TAB PO ONE (01:54)
[2019-03-14 02:09] VITALS: BP 149/90; TEMP 98.2; O2SAT 99
== END 2019-03-14 02:11 | disposition home or self-care (01) ==
LOC: ER 23:58
DX: S42.215A Unspecified nondisplaced fracture of surgical neck of left humerus, initial encounter for closed fracture (principal); F32.9 Major depressive disorder, single episode, unspecified; E11.9 Type 2 diabetes mellitus without complications; V93.39XA Fall on board unspecified watercraft, initial encounter; Y92.814 Boat as the place of occurrence of the external cause; Z79.84 Long term (current) use of oral hypoglycemic drugs; Z79.899 Other long term (current) drug therapy
CPT/HCPCS: 73000; 73030; 73060; J2360; J3010

== ENCOUNTER → 2019-03-29 | Outpatient (CLI) | payer BC ==
--- NOTE | 2019-03-29 10:14 | RAD ---
The radiograph left shoulder Indication: M25.512 Comparison: March 14, 2019 Impression: Mildly comminuted fracture involving the surgical neck of the left humerus demonstrates stable alignment. The fracture planes are slightly less distinct suggesting a component of progressive healing. The fracture however remains largely ununited. No new fracture identified. Electronically signed by: Oswald Wray MD 03/29/2019 10:12 AM CDT
== END ==
LOC: RAD 08:24
PROVIDERS: ATTEND Orthopaedic Surgery
DX: S42.295A Other nondisplaced fracture of upper end of left humerus, initial encounter for closed fracture (principal)

== ENCOUNTER → 2019-04-30 | Outpatient (CLI) | payer BC ==
--- NOTE | 2019-04-30 17:23 | RAD ---
EXAM DESCRIPTION: Shoulder,Left 2 or More Views CLINICAL HISTORY: UNSPEC FRACTURE OF SHAFT OF HUMERUS LEFT ARM COMPARISON: 03/29/2019 TECHNIQUE: Two views of the left shoulder. FINDINGS/IMPRESSION: Images of the left shoulder demonstrate healing minimal/nondisplaced fracture of the left humerus surgical neck with interval progressive bridging callus formation with mild residual fracture lucency. The osseous alignment is stable. The left glenohumeral and acromioclavicular joints are intact without dislocation. Electronically signed by: Mo Hunt DO 04/30/2019 5:22 PM CDT
== END ==
LOC: RAD 08:47
PROVIDERS: ATTEND Orthopaedic Surgery
DX: S42.302A Unspecified fracture of shaft of humerus, left arm, initial encounter for closed fracture (principal)

== ENCOUNTER → 2019-05-28 | Outpatient (CLI) | payer BC ==
--- NOTE | 2019-05-29 13:33 | RAD ---
EXAM DESCRIPTION: Shoulder,Left 2 or More Views CLINICAL HISTORY: CLOSED FX OF HUMERUS COMPARISON: April 30, 2019 IMPRESSION: 2 views of the left humerus show interval healing of nondisplaced left humerus surgical neck fracture continued bridging callus formation. No significant residual fracture lucency is seen on today's exam. No acute appearing fracture or dislocation. The acromioclavicular joint is unremarkable. Electronically signed by: Yovanny Sheikh MD 05/29/2019 1:31 PM CDT
== END ==
LOC: RAD 08:33
PROVIDERS: ATTEND Orthopaedic Surgery
DX: S42.302D Unspecified fracture of shaft of humerus, left arm, subsequent encounter for fracture with routine healing (principal)

== ENCOUNTER → 2019-07-01 | Outpatient (CLI) | payer BC ==
--- NOTE | 2019-07-01 13:43 | RAD ---
EXAM DESCRIPTION: Shoulder,Left 2 or More Views CLINICAL HISTORY: 48 years Female, CLOSED FX OF HUMERUS COMPARISON: May 28, 2019, March 29, 2019 FINDINGS: Old healed or healing left humeral neck fracture, unchanged from the most recent prior exam. No new fracture or malalignment. The left AC joint is unremarkable. No soft tissue abnormality. IMPRESSION: Old healed or healing left humeral neck fracture, unchanged from May 28, 2019. No new abnormality. Electronically signed by: Fabricio Cade MD 07/01/2019 1:41 PM CDT
== END ==
LOC: RAD 08:37
PROVIDERS: ATTEND Orthopaedic Surgery
DX: S42.302D Unspecified fracture of shaft of humerus, left arm, subsequent encounter for fracture with routine healing (principal)